=== PATIENT | female | born 1995 | race Caucasian/White ===

== ENCOUNTER → 2017-02-15 | Outpatient (CLI) | payer OTHER ==
[~2017-02-15] MED LIST: IBUP-1114 PO; PRENTAB7 PO; TYLE167L PO; TYLE325T5 PO
[2017-02-15 17:11] LABS: CONTROL LINE HCG INT CTR LINE PRESENT
[2017-02-15 17:24] LABS: T UPTAKE 30 % (30-39); THYROXINE (T4) 9.1 UG/DL (6.0-11.6)
== END ==
LOC: M SMT 15:23
PROVIDERS: ATTEND Advanced Practice Midwife
DX: N91.1 Secondary amenorrhea (principal)

== ENCOUNTER → 2017-02-18 | Outpatient (REF) | payer OTHER ==
[2017-02-18 15:42] LABS: PROLACTIN 7.5 NG/ML
[2017-02-22 08:07] LABS: INSULIN FREE 7.3 uU/mL (.)
== END ==
LOC: M LAB REF 13:26
PROVIDERS: ATTEND Advanced Practice Midwife
DX: N91.1 Secondary amenorrhea (principal)

== ENCOUNTER → 2017-03-11 | Outpatient (CLI) | payer OTHER | LOC: M SMT 13:16 | PROVIDERS: ATTEND Advanced Practice Midwife | DX: N91.1 Secondary amenorrhea (principal) ==